=== PATIENT | female | born 1950 | race Caucasian/White ===

== ENCOUNTER 2020-07-29 18:59 | Emergency (ER) | payer MEDICARE, OTHER ==
[~2020-07-29 18:59] MED LIST: ALEVE220 M1 PO; ASPIRIN81 MG PO; EFFEXOR XR75 MG PO; EQUATE MULTI VIT; FLEXERIL10 MG PO; IBUPROFEN400 MG PO; IRON236 MG PO; LEVAQUIN500 MG PO; PANTOPRAZOLE SO40 MG PO; PLAQUENIL200 MG PO; PRILOSEC20 MG PO; PROLIA60 MG/1 ML IJ; TRAZODONE 150M150 MG PO; ZANTAC150 MG PO; calcium mag zinc; vit d
[2020-07-29 21:16] LABS: BASOPHIL 0.7 % (0-2); BILIRUBIN NEGATIVE (NEGATIVE); BLOOD NEGATIVE Ery/uL (NEGATIVE); CLARITY CLEAR (CLEAR); COLOR YELLOW (YELLOW); GLUCOSE (U) NORMAL (NORMAL); HCT 35.2 % (37.0-47.0); HGB 11.7 g/dl (12.5-16.0); LEUKOCYTES NEGATIVE Leu/uL (NEGATIVE); LYMPHOCYTE 29.4 % (15-48); MCH 31.3 pg (25.0-31.0); MCHC 33.2 g/dL (32.0-36.0); MCV 94.1 fL (78.0-100.0); MONOCYTE 9.4 % (0-12); NEUTROPHIL 58.5 % (41-80); NITRITE NEGATIVE (NEGATIVE); NRBC 0; PLT 286 K/uL (150-400); PROTEIN NEGATIVE (NEGATIVE); RBC 3.74 M/uL (4.20-5.40); RDW 12.9 % (11.5-14.0); UROBILINOGEN 0.2 mg/dL (0.2-1.0); pH 5.5 (5.0-9.0)
[2020-07-29 21:31] LABS: BUN/CREAT RATIO (CALC) 9.8 RATIO; CREATININE 1.53 mg/dL (0.51-0.95)
[2020-07-29] MEDS ORDERED: BACLOFEN 10MG T10 MG PO (21:56)
== END 2020-07-29 22:52 | disposition home or self-care (01) ==
LOC: FER 18:59
PROVIDERS: Nurse Practitioner Family
DX: M54.5 Low back pain (principal); F17.210 Nicotine dependence, cigarettes, uncomplicated; F41.9 Anxiety disorder, unspecified; N18.9 Chronic kidney disease, unspecified; Z90.49 Acquired absence of other specified parts of digestive tract; Z88.1 Allergy status to other antibiotic agents; Z79.82 Long term (current) use of aspirin; Z79.899 Other long term (current) drug therapy
CPT/HCPCS: 36415; 80048; 81003; 85025; 99283

== ENCOUNTER 2021-10-17 16:40 | Emergency (ER) | payer MEDICARE, OTHER ==
[~2021-10-17 16:40] MED LIST changes: +BACLOFEN 10MG T10 MG PO; +BACTRIM DS TAB1 EACH PO
[2021-10-17 16:59] LABS: BASOPHIL 0.7 % (0-2); EOSINOPHIL 0.1 % (0-7); HGB 11.5 g/dl (12.5-16.0); LYMPHOCYTE 21.2 % (15-48); MCH 31.3 pg (25.0-31.0); MCHC 34.8 g/dL (32.0-36.0); MCV 89.7 fL (78.0-100.0); MONOCYTE 11.8 % (0-12); MPV 8.6 fL (6.0-9.5); NEUTROPHIL 65.8 % (41-80); NRBC 0; PLT 311 K/uL (150-400); RBC 3.68 M/uL (4.20-5.40); RDW 13.2 % (11.5-14.0)
[2021-10-17 17:13] LABS: INR 1.01 (0.9-1.2); PTT 28.1 SECONDS (24.9-34.6)
[2021-10-17 17:25] LABS: ALBUMIN 3.6 g/dL (3.4-5.0); BILIRUBIN - TOTAL 0.6 mg/dL (0.2-1.0); BUN/CREAT RATIO (CALC) 11.3 RATIO; CREATININE 1.59 mg/dL (0.51-0.95); GLOBULIN (CALCULATION) 3.4 g/dL; POTASSIUM 4.2 mmol/L (3.5-5.1)
== END 2021-10-17 17:50 | disposition other institution (70) ==
LOC: FER 16:40
PROVIDERS: Emergency Medicine
DX: I21.3 ST elevation (STEMI) myocardial infarction of unspecified site (principal); N18.30 Chronic kidney disease, stage 3 unspecified; F17.210 Nicotine dependence, cigarettes, uncomplicated
CPT/HCPCS: 36415; 71045; 80053; 84484; 85025; 85610; 85730; 93005; J1644